=== PATIENT | male | born 1960 | race Caucasian/White ===

== ENCOUNTER 2017-11-09 05:18 | Day surgery (SDC) | payer OTHER ==
[2017-11-09] VITALS (14 sets, daily range): BP systolic 69–131; BP diastolic 9–87
[~2017-11-09] VITALS: Ht 175.3 cm; Wt 95.3 kg
[2017-11-09] MEDS ORDERED: PROTONIX40 MG ORAL (05:56)
[2017-11-09] MEDS ORDERED: celeBREX 200mg Cap **SURGERY PATIENTS ONLY ORAL ONE (06:00)
[2017-11-09] MEDS ORDERED: oxyCONTIN 20mg tab ORAL ONE (06:00)
[2017-11-09] MEDS ORDERED: ceFAZolin 1gm/50ml Premix 50 ML IV ONE (06:00)
[2017-11-09] MEDS ORDERED: LISINOPRIL5 MG ORAL (06:01)
[2017-11-09] MEDS ORDERED: IBUPROFEN600 MG ORAL (06:01)
[2017-11-09] MEDS ORDERED: NORCO 5-325 TA1 EAC1 ORAL (06:01)
[2017-11-09] MEDS ORDERED: Isovue-M 300 15ml INJ ONE (06:40)
[2017-11-09] MEDS ORDERED: Ropivacaine 5mg/ml Vial 30ml INJ ONE (06:41)
[2017-11-09] MEDS ORDERED: Kenalog-40 1ml Vial ONE (06:41)
[2017-11-09] MEDS ORDERED: Lidocaine 1% 10mg/ml/Epi 0.005mg/ml 30ml vial INJ ONE (06:41)
--- NOTE | 2017-11-09 06:59 | Pre-Procedure Note/Attestation ---
Pre-Procedure Note/Attestation Complete Prior to Procedure Planned Procedure: right Procedure Narrative: Rt shoulder NELY Indications for Procedure Pre-Operative Diagnosis: Rt frozen shoulder Attestation I attest that I discussed the nature of the procedure; its benefits; risks and complications; and alternatives (and the risks and benefits of such alternatives ), prior to the procedure, with the patient (or the patient's legal retail customer service representative). I attest that, if there was a reasonable possibility of needing a blood transfusion, the patient (or the patient's legal retail customer service representative) was given the [facility] standardized written summary, pursuant to the Robert Xi[employer] Blood Safety Act ([place] Health and Safety Code # 1645, as amended). I attest that I re-evaluated the patient just prior to the surgery and that there has been no change in the patient's H&P, except as documented below: NONE DAVE LLOYD Nov 09, 2017 06:59
[2017-11-09] MEDS ORDERED: Midazolam 2mg/2ml Inj ONE (07:00)
[2017-11-09] MEDS ORDERED: NS Irrig 1000ml ONE (07:00)
[2017-11-09] MEDS ORDERED: fentaNYL 100 mcg/2 mL IV ONE (07:00)
[2017-11-09] MEDS ORDERED: Propofol 200mg/20ml IV ONE (07:00)
[2017-11-09] MEDS ORDERED: LR 1000ml ONE (07:00)
[2017-11-09] MEDS ORDERED: Sterile Water Irrig 1000ml IRRIG ONE (07:00)
[2017-11-09] MEDS ORDERED: HYDROmorphone 1mg/ml Carpuject SUBQ PRN (07:30)
[2017-11-09] MEDS ORDERED: Norco 5mg/325mg tab ORAL PRN (07:30)
[2017-11-09] MEDS ORDERED: Tylenol #3 tab (300mg/30mg) ORAL PRN (07:30)
[2017-11-09] MEDS ORDERED: D5 1/2NS 1,000 ML IV SCH (07:30)
--- NOTE | 2017-11-09 07:33 | Brief Operative Note ---
Immediate Post Operative Note Operative Note Chief Complaint: rt shoulder pain Pre-op Diagnosis: rt frozen shoulder Procedure: rt shoulder phuc with injection Post-op Diagnosis: same as pre-op Findings: consistent w/pre-op dx studies Surgeon: [email or web address] jung Anesthesiologist: md gurmeet Anesthesia: regional, moderate sedation Specimen: none Complications: none Condition: stable Fluids: ns Estimated Blood Loss: none Drains: none Implant(s) used?: No TAYLOR MARAVILLA Nov 09, 2017 07:33
[2017-11-09] MEDS ORDERED: Ketorolac 30mg Inj IV ONE (08:00)
--- NOTE | 2017-11-09 08:16 | Anethesia Preoperative Eval ---
Anesthesia Pre-op PMH/ROS General Date of Evaluation: Nov 09, 2017 Time of Evaluation: 06:50 Anesthesiologist: Nela ASA Score: ASA 2 Mallampati Score Class I : Soft palate, uvula, fauces, pillars visible Class II: Soft palate, uvula, fauces visible Class III: Soft palate, base of uvula visible Class IV: Only hard plate visible Mallampati Classification: Class II Surgeon: Eliseo Diagnosis: R shoulder pain Surgical Procedure: R shoulder manipulation Anesthesia History: none Family History: no anesthesia problems Allergies: Coded Allergies: No Known Allergies (Unverified , 11/08/17) Medications: see eMAR Past Medical History Cardiovascular: Reports: HTN - mild, Denies: CAD, [place], valve dz, arrhythmia, other Pulmonary: Denies: asthma, COPD, SARBJIT, other Gastrointestinal/Genitourinary: Reports: GERD, Denies: CRI, ESRD, other Neurologic/Psychiatric: Reports: other - chronic pain, Denies: dementia, CVA, depression/anxiety, TIA Endocrine: Denies: DM, hypothyroidism, steroids, other HEENT: Denies: cataract (L), cataract (R), glaucoma, [place] (L), [place] (R), other Hematology/Immune: Denies: anemia, DVT, bleeding disorder, other Musculoskeletal/Integumentary: Denies: OA, RA, DJD, DDD, edema, other Other: other - overweight PMH Narrative: as above PSxH Narrative: Dental Anesthesia Pre-op Phys. Exam Physician Exam Last Vital Signs Date Time Temp Pulse Resp B/P (MAP) Pulse Ox O2 Delivery O2 Flow Rate FiO2 11/09/17 08:00 98.1 11/09/17 08:00 81 18 119/77 100 Simple Mask 6.0 Constitutional: NAD Neurologic: CN 2-12 intact Cardiovascular: RRR, no M/R/G Respiratory: CTA Gastrointestinal: S/NT/ND Airway Exam Mallampati Score: Class II MO: limited Neck: stiff ROM: limited Teeth: intact Dentures: no upper, no lower Anesthesia Pre-op A/P Labs see chart Studies Pre-op Studies: EKG - NSR Risk Assessment & Plan Assessment: ASA 2 Plan: MAC with R brachial plexus block for p/op pain control Status Change Before Surgery: No Pre-Antibiotics Drug: none BECKY SPRINGER M.D. Nov 09, 2017 08:16
--- NOTE | 2017-11-09 08:17 | Immediate Post-Op Evaluation ---
Immediate Post-Op Evalulation Immediate Post-Op Evalulation Procedure: R shoulder manipulation with cortison injection Date of Evaluation: Nov 09, 2017 Time of Evaluation: 07:50 IV Fluids: 600 Blood Products: none Estimated Blood Loss: none Urinary Output: none Blood Pressure Systolic: 126 Blood Pressure Diastolic: 74 Pulse Rate: 78 Respiratory Rate: 20 O2 Sat by Pulse Oximetry: 99 Temperature (Fahrenheit): 97.8 Pain Score (1-10): 2 Nausea: No Vomiting: No Complications none Patient Status: awake, patent, none Hydration Status: adequate BECKY SPRINGER M.D. Nov 09, 2017 08:17
[2017-11-09] MEDS ORDERED: LR 1000ml 1,000 ML IVLG SCH (08:18)
[2017-11-09] MEDS ORDERED: Hydromorphone 0.5mg/0.5ml inj IVP PRN (08:30)
[2017-11-09] MEDS ORDERED: DiphenhydrAMINE 50mg/ml Inj IVP PRN (08:30)
[2017-11-09] MEDS ORDERED: Meperidine 50mg/ml Inj(FOR RIGORS ONLY) IV PRN (08:30)
--- NOTE | 2017-11-09 10:45 | 48 Hour Post Anesthesia Eval ---
Post Anesthesia Evaluation Procedure: R shoulder manipulation with cortison injection Date of Evaluation: Nov 09, 2017 Time of Evaluation: 10:02 Blood Pressure Systolic: 128 0: 76 Pulse Rate: 68 Respiratory Rate: 22 Temperature (Fahrenheit): 97.6 O2 Sat by Pulse Oximetry: 98 Airway: patent Nausea: No Vomiting: No Pain Intensity: 2 Hydration Status: adequate Cardiopulmonary Status: stable Mental Status/LOC: patient returned to baseline Follow-up Care/Observations: n/a Post-Anesthesia Complications: none Follow-up care needed: ready to discharge BECKY SPRINGER M.D. Nov 09, 2017 10:45
--- NOTE | 2017-11-09 10:45 | Operative Note - Dictated ---
DATE OF OPERATION: 11/09/2017 PREOPERATIVE DIAGNOSIS: Right shoulder adhesive capsulitis, severe. POSTOPERATIVE DIAGNOSIS: Right shoulder adhesive capsulitis, severe. PROCEDURE: 1. Right shoulder manipulation under anesthesia. 2. Right shoulder arthrogram under fluoroscopy. 3. Right shoulder injection of 8 mL of ropivacaine with 2 mL of Kenalog 40 mg/mL. SURGEON: Eugene Gomes M.D. LAW ENFORCEMENT INSTRUCTOR: Hoda Miller PA-C. ANESTHESIOLOGIST: Franklin Rondon M.D. ANESTHESIA: General mask anesthesia combined with interscalene block for postoperative pain management. ESTIMATED BLOOD LOSS: Less than 2 mL. COMPLICATIONS: None. BRIEF HISTORY: The patient is a pleasant 56-year-old gentleman, who developed adhesive capsulitis. He failed nonoperative treatment. After full discussion of risks and benefits of the procedure including infection, bleeding, neurovascular complication, possibility of fracture, possibility of late recurrence of adhesive capsulitis, possible continued pain, and other complications that may arise, he opted for surgical treatment. OPERATIVE PROCEDURE: The patient was brought to operating table and was placed supine. All pressure points were well padded. Interscalene block was performed. General mask anesthesia was performed. The right shoulder was then placed into range of motion. It was brought into full flexion, abduction, external and internal rotation, and adduction. Adhesions were broken up as this manipulation was performed. Gentle crackling was heard as the adhesions were released. Once this was completed, the fluoroscopy was brought in. The glenohumeral joint was identified with the use of fluoroscopy. The shoulder was then prepped anteriorly and an 18-gauge spinal needle was placed intra-articularly. Aortogram was performed to ensure the needle was inside the glenohumeral joint. The Isovue was injected and glenohumeral joint was visualized. The rotator cuff did not have any tears and there was no extravasation of the dye into the subacromial space. Once this was completed, a 2 mL of Kenalog combined with 8 mL of ropivacaine was injected intra-articularly with no complication. Needle was removed and the anterior shoulder was cleaned and a Band-Aid was applied. At this point, the patient was awakened and was taken to recovery room in stable condition. All lap counts and instrument counts were correct. Eugene Ken Gomes DR: Toribio JOB#: [id number] CC: LORRIE
--- NOTE | 2017-11-09 16:21 | Diagnostic Imaging Report ---
Indication: Shoulder pain, intraoperative Technique: Intraoperative imaging Comparison: none Findings: Intraoperative images demonstrate contrast about the right shoulder, presumably intra-articular although not well visualized on the available images Impression: Intraoperative imaging, as described
== END 2017-11-09 09:35 | disposition home or self-care (01) ==
LOC: SUR 05:18
DX: M75.01 Adhesive capsulitis of right shoulder (principal); Z79.82 Long term (current) use of aspirin; Z82.3 Family history of stroke; Z82.49 Family history of ischemic heart disease and other diseases of the circulatory system; I10 Essential (primary) hypertension; K21.9 Gastro-esophageal reflux disease without esophagitis
CPT/HCPCS: 23700; 73020; 76000; J1885; J2250; J2704; J2795; J3010; J3301; J7120; Q9967; 94003; 94150